=== PATIENT | female | born 1965 | race Caucasian/White ===

== ENCOUNTER 2018-08-06 08:39 | Outpatient (CLI) | payer OTHER ==
[~2018-08-06 08:39] MED LIST: ALLEGRA-D 24 H1 EACH; BACTROBAN OINT NASAL; HIBICLENS TP; LEVAQUIN750 MG PO; MULTI VITAMIN1 EACH; PNEU16DI2; PREVACID15 M1; RELPAX40 MG; VALACYCLOVIR500 MG; ZOCOR20 MG
== END 2018-08-06 08:56 | disposition home or self-care (01) ==
LOC: RAD 08:39
DX: I10 Essential (primary) hypertension (principal)

== ENCOUNTER 2018-08-25 11:23 | Day surgery (SDC) | payer OTHER ==
[~2018-08-25 11:23] MED LIST changes: +MAGNESIUM500 MG PO
== END 2018-08-25 19:30 | disposition home or self-care (01) ==
LOC: CIR.AMB 11:23
DX: M75.122 Complete rotator cuff tear or rupture of left shoulder, not specified as traumatic (principal); M75.02 Adhesive capsulitis of left shoulder; M75.22 Bicipital tendinitis, left shoulder

== ENCOUNTER 2022-02-19 10:05 | Outpatient (CLI) | payer OTHER | END 2022-02-19 10:17 | disposition home or self-care (01) | LOC: NUCLEAR 10:05 | PROVIDERS: ATTEND Physical Medicine & Rehabilitation | DX: M79.661 Pain in right lower leg (principal) ==

== ENCOUNTER 2022-06-30 07:57 | Emergency (ER) | payer OTHER ==
[~2022-06-30] VITALS: Ht 162.6 cm; Wt 79.4 kg
== END 2022-06-30 11:15 | disposition home or self-care (01) ==
LOC: ER 07:57
DX: R30.0 Dysuria (principal)

== ENCOUNTER 2025-06-15 12:08 | Emergency (ER) | payer OTHER ==
[~2025-06-15] VITALS: Ht 162.6 cm; Wt 75.7 kg
[2025-06-15] MEDS ORDERED: PREVACID30 MG PO (12:16)
[2025-06-15] MEDS ORDERED: VALCYCLOVIR PO (12:17)
[2025-06-15] MEDS ORDERED: ZOCOR20 MG PO (12:17)
[2025-06-15] MEDS ORDERED: FOSAMAX70 MG PO (12:18)
[2025-06-15] MEDS ORDERED: ALLEGRA ALLERGY60 MG PO (12:18)
[2025-06-15 13:08] LABS: BASO % 0.3 % (0.1-1.2); EOS # 0.19 (0.04-0.54); EOS % 2.0 % (0.7-7.0); LYMPH # 3.07 (1.18-3.74); LYMPH % 33.1 % (19.3-53.1); MEAN PLATELET VOLUME 9.10 fl (9.4-12.4); MONO # 0.56 (0.24-0.82); MONO % 6.0 % (4.7-12.5); NEUT # 5.42 (1.56-6.13); NEUT % 58.5 % (34.0-71.1); RED CELL DISTRIBUTION WIDTH 13.7 % (11.6-14.4)
[2025-06-15 13:30] LABS: COVID-19 AG NEGATIVE (NEGATIVE)
== END 2025-06-15 14:42 | disposition home or self-care (01) ==
LOC: ER 12:08
PROVIDERS: General Practice
DX: J06.9 Acute upper respiratory infection, unspecified (principal); Z20.822 Contact with and (suspected) exposure to COVID-19